=== PATIENT | female | born 1985 | race African-American/Black ===

== ENCOUNTER 2016-06-12 18:23 | Emergency (ER) | payer SELFPAY ==
[~2016-06-12] VITALS: Ht 160 cm; Wt 51.8 kg
[~2016-06-12 18:23] MED LIST: VENTAER INH
[2016-06-12 18:24] VITALS: BP 129/92; PULSE 71; RESP 16; TEMP 98.2; O2SAT 97
--- NOTE | 2016-06-12 19:25 | PD ---
HPI Chief Complaint: Abdominal Pain Time Seen by Provider: 19:16 Travel History International Travel<30 days: No Contact w/Intl Traveler<30days: No Traveled to known affect area: No History of Present Illness HPI 31 year-old female presents to the emergency department for complaint of 2 days of lower pelvic pressure. Patient states symptoms remind her of previous episode of PID. Patient has had scant clear cloudy vaginal discharge. Patient rates discomfort 5-6/10 in intensity. Patient denies fever chills nausea vomiting flank pain or dysuria. Patient has noted some urinary frequency and urgency. Last menstrual period was 06/06/16 and normal for her. Patient is 2 para 0 AB 2. 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 PFSH Past Medical History Narrative Medical PID HSV AB 2 D&C no tobacco use nursing notes reviewed Medical History: Denies Significant Hx Diminished Hearing: No Respiratory: Yes Tetanus Vaccination: < 5 Years Influenza Vaccination: No ?: Not LMP: 05/30/16 : 1 Para: 0 Miscarriage: 0 : 1 Dilation and Curettage (D&C): Yes Past Surgical History Surgical History: No Previous Surgery Social History Alcohol Use: No Tobacco Use: No Substance Use: No Allergies-Medications (Allergen,Severity, Reaction): Coded Allergies: Cipro (Verified Allergy, Intermediate, GI UPSET, 06/12/16) Reported Meds & Prescriptions Reported Meds & Active Scripts Active No Active Prescriptions or Reported Medications Review of Systems Except as stated in HPI: all other systems reviewed are Neg General / Constitutional: No: Fever, Chills HENT: No: Congestion Cardiovascular: No: Chest Pain or Discomfort Respiratory: No: Shortness of Breath Gastrointestinal: Positive: Abdominal Pain, No: Nausea, Vomiting Genitourinary: Positive: Pelvic Pain, Discharge, No: Dysuria, Flank Pain Musculoskeletal: No: Myalgias, Arthralgias Skin: No Rash Neurologic: No: Weakness Psychiatric: No: Anxiety Hematologic/Lymphatic: No: Easy Bruising Physical Exam Narrative GENERAL: Well-developed well-nourished female in no acute distress no respiratory distress SKIN: Warm and dry. HEAD: Normocephalic. EYES: No scleral icterus. No injection or drainage. NECK: Supple, trachea midline. No JVD or lymphadenopathy. CARDIOVASCULAR: Regular rate and rhythm without murmurs, gallops, or rubs. RESPIRATORY: Breath sounds equal bilaterally. No accessory muscle use. GASTROINTESTINAL: Abdomen soft, mild diffuse tenderness to palpation without guarding or rebound, nondistended. Pelvic exam: Normal external exam without redness induration or lesions; speculum exam scant clear to cloudy mucous without blood or clots or tissue also cervical os is closed; bimanual exam no cervical motion tenderness no adnexal mass or tenderness no uterine enlargement. MUSCULOSKELETAL: No cyanosis, or edema. BACK: Nontender without obvious deformity. No CVA tenderness. Data Data Last Documented VS Vital Signs Date Time Temp Pulse Resp B/P Pulse Ox O2 Delivery O2 Flow Rate FiO2 06/12/16 18:24 98.2 71 16 129/92 97 Orders Complete Blood Count With Diff (06/12/16 19:16) Basic Metabolic Panel (Bmp) (06/12/16 19:16) Gc And Chlamydia Pcr (06/12/16 19:16) Wet Prep Profile (06/12/16 19:16) Urinalysis - C+S If Indicated (06/12/16 19:16) Ed Urine Pregnancytest Poc (06/12/16 19:16) Labs Laboratory Tests Test 06/12/16 06/12/16 06/12/16 19:00 19:25 19:40 Urine Collection Type VOIDED Urine Color YELLOW Urine Turbidity CLEAR Urine pH 6.0 Urine Specific [place] 1.025 Urine Protein NEG mg/dL Urine Glucose (UA) NEG mg/dL Urine Ketones 15 mg/dL Urine Occult Blood TRACE Urine Nitrite NEG Urine Bilirubin NEG Urine Leukocyte Esterase NEG Urine WBC 0-2 /hpf Urine Squamous Epithelial <8 /hpf Cells Urine Bacteria FEW /hpf Urine Mucus FEW /lpf Microscopic Urinalysis Comment CULT NOT INDICATED Clue Cells (Wet Prep) NONE SEEN Vaginal Trichomonas (Wet Prep) NONE SEEN Vaginal Yeast (Wet Prep) NONE SEEN White Blood Count 6.3 TH/MM3 Red Blood Count 4.08 MIL/MM3 Hemoglobin 12.8 GM/DL Hematocrit 37.9 % Mean Corpuscular Volume 92.9 FL Mean Corpuscular Hemoglobin 31.3 PG Mean Corpuscular Hemoglobin 33.7 % Concent Red Cell Distribution Width 12.2 % Platelet Count 196 TH/MM3 Mean Platelet Volume 10.1 FL Neutrophils (%) (Auto) 42.2 % Lymphocytes (%) (Auto) 43.4 % Monocytes (%) (Auto) 5.9 % Eosinophils (%) (Auto) 7.4 % Basophils (%) (Auto) 1.1 % Neutrophils # (Auto) 2.7 TH/MM3 Lymphocytes # (Auto) 2.6 TH/MM3 Monocytes # (Auto) 0.4 TH/MM3 Eosinophils # (Auto) 0.5 TH/MM3 Basophils # (Auto) 0.1 TH/MM3 CBC Comment AUTO DIFF Sodium Level 141 MEQ/L Potassium Level 3.6 MEQ/L Chloride Level 106 MEQ/L Carbon Dioxide Level 27.6 MEQ/L Anion Gap 7 MEQ/L Blood Urea Nitrogen 9 MG/DL Creatinine 0.95 MG/DL Estimat Glomerular Filtration 84 ML/MIN Rate Random Glucose 85 MG/DL Calcium Level 9.1 MG/DL [facility] Medical Decision Making Medical Screen Exam Complete: Yes Emergency Medical Condition: Yes Medical Record Reviewed: Yes Interpretation(s) CBC & BMP Diagram 06/12/16 19:40 Vital Signs Date Time Temp Pulse Resp B/P Pulse Ox O2 Delivery O2 Flow Rate FiO2 06/12/16 18:24 98.2 71 16 129/92 97 UA: cx not indicated poc hcg: negative wet prep: negative Differential Diagnosis UTI, PID, STI, bacterial vaginosis, mittelschmerz, ruptured ovarian cyst, ectopic Narrative Course Specimens collected for CBC basic metabolic panel [id number] wet prep and PCR for GC and chlamydia and sent for resulting Patient resting comfortably voicing no concerns or complaints; vital signs stable informed of lab results; patient be treated presumptively for pending GC and chlamydia results with Rocephin and azithromycin; patient stable for outpatient management with prescription for Anaprox to take as needed for pain associated with inflammation and is encouraged to follow-up with her stock wetter. Diagnosis Primary Impression: Pelvic pain Referrals: Chief Informatics Officer call for appointment Patient Instructions: General Instructions Med/Other Pt SpecificInfo: Prescription(s) given Scripts Naproxen Sodium DS (Anaprox DS)550 Mg [id number] Mg PO Q12HR PRN (PAIN GREATER THAN 6) #12 TAB Ref 0 Prov:Elvira Norris MD 06/12/16 Elvira Norris MD Jun 12, 2016 19:24
[2016-06-12 20:02] LABS: AUTOMATED NEUTROPHIL # 2.7 TH/MM3 (1.8-7.7); BASOPHIL # 0.1 TH/MM3 (0-0.2); BASOPHIL % 1.1 % (0.0-2.0); EOSINOPHIL # 0.5 TH/MM3 (0-0.4); EOSINOPHIL % 7.4 % (0.0-4.0); HEMATOCRIT 37.9 % (35.0-46.0); LYMPH % 43.4 % (9.0-44.0); LYMPHOCYTE # 2.6 TH/MM3 (1.0-4.8); MEAN CELL VOLUME 92.9 FL (80.0-100.0); MEAN CORPUSCULAR HEMOGLOBIN 31.3 PG (27.0-34.0); MEAN CORPUSCULAR HGB CONC 33.7 % (32.0-36.0); MONO % 5.9 % (0.0-8.0); NEUT % 42.2 % (16.0-70.0); PLATELET COUNT 196 TH/MM3 (150-450); RED BLOOD COUNT 4.08 MIL/MM3 (4.00-5.30); RED CELL DISTRIBUTION WIDTH 12.2 % (11.6-17.2); WHITE BLOOD COUNT 6.3 TH/MM3 (4.0-11.0)
[2016-06-12 20:04] LABS: BLOOD, URINE TRACE (NEG); GLUCOSE,URINE NEG (NEG); KETONE, URINE 15 mg/dL (NEG); NITRITE,URINE NEG (NEG)
[2016-06-12 20:13] LABS: HEMO FLAGS AUTO DIFF; POTASSIUM 3.6 MEQ/L (3.5-5.1)
[2016-06-12 20:16] LABS: BICARBONATE 27.6 MEQ/L (21.0-32.0)
[2016-06-12 20:19] LABS: METHOD OF COLLECTION VOIDED; URINE COLOR YELLOW (YELLW/STRAW)
[2016-06-12 20:20] LABS: BACTERIA, URINE FEW /hpf; MUCUS URINE FEW /lpf (OCC); SQUAMOUS EPITHELIAL CELL URINE <8 /hpf (0-5); WBC, URINE 0-2 /hpf (0-5)
[2016-06-12 20:21] LABS: COMMENT (UR) CULT NOT INDICATED; CULTURE IF INDICATED CULT NOT INDICATED
[2016-06-12] MEDS ORDERED: AZITHROMYCIN 250 MG TAB PO ONE (20:30)
[2016-06-12] MEDS ORDERED: NAPR550 PO (20:30)
[2016-06-12] MEDS ORDERED: cefTRIAXone INJ 250 MG in SODIUM CHLORIDE 0.9% INJ 100 ML IV ONE (20:45)
[2016-06-12 21:36] LABS: PLATELET ESTIMATE SMEAR NORMAL (NORMAL); PLATELET MORPHOLOGY NORMAL (NORMAL); SCAN/DIFF AUTO DIFF CONFIRMED
[2016-06-12 21:48] VITALS: BP 124/76
[2016-06-13 01:17] LABS: CHLAMYDIA PCR NOT DETECTED (NOT DETECT); NEISSERIA PCR NOT DETECTED (NOT DETECT)
== END 2016-06-12 21:55 | disposition home or self-care (01) ==
LOC: PHED 18:23
DX: R10.2 Pelvic and perineal pain (principal); N89.8 Other specified noninflammatory disorders of vagina; R35.0 Frequency of micturition; R39.15 Urgency of urination; Z87.42 Personal history of other diseases of the female genital tract; Z87.09 Personal history of other diseases of the respiratory system
CPT/HCPCS: 80048; 81001; 84703; 85025; 87210; 87491; 87591; 96365; 99284; J0696